=== PATIENT | female | born 1975 | race American Indian/Alaskan Native ===

== ENCOUNTER 2019-01-31 21:09 | Emergency (ER) | payer OTHER ==
--- NOTE | 2019-01-31 21:53 | Event Note ---
ED Screening Note ED Screening Note: right lower back pain that radiates down the right leg began today no fall no numbness or weakness states she took ibuprofen without much relief This initial assessment/diagnostic orders/clinical plan/treatment(s) is/are subject to change based on patients health status, clinical progression and re-assessment by fellow clinical providers in the ED. Further treatment and workup at subsequent clinical providers discretion. Patient/guardian urged not to elope from the ED as their condition may be serious if not clinically assessed and managed.
[2019-02-01] MEDS ORDERED: ACETAMINOPHEN 500 MG TAB PO ONE (00:12)
[2019-02-01] MEDS ORDERED: IBUPROFEN 800 MG TAB PO ONE (00:12)
[2019-02-01] MEDS ORDERED: CYCLOBENZAPRINE 10 MG TAB PO ONE (00:12)
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
[2019-02-01 01:06] VITALS: BP 108/52
== END 2019-02-01 01:06 | disposition home or self-care (01) ==
LOC: ED 21:09
DX: S39.012A Strain of muscle, fascia and tendon of lower back, initial encounter (principal); M62.830 Muscle spasm of back; F17.200 Nicotine dependence, unspecified, uncomplicated; V89.2XXA Person injured in unspecified motor-vehicle accident, traffic, initial encounter; Y93.89 Activity, other specified; Y92.410 Unspecified street and highway as the place of occurrence of the external cause; Y99.8 Other external cause status
CPT/HCPCS: 99282

== ENCOUNTER 2019-02-02 17:39 | Emergency (ER) | payer OTHER ==
[2019-02-02 17:54] VITALS: BP 111/71
[2019-02-02] MEDS ORDERED: ACETAMINOPHEN 500 MG TAB PO ONE (22:07)
[2019-02-02] MEDS ORDERED: predniSONE 20 MG TAB PO ONE (22:07)
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
== END 2019-02-03 00:50 | disposition home or self-care (01) ==
LOC: ED 17:39
DX: S43.401A Unspecified sprain of right shoulder joint, initial encounter (principal); M62.830 Muscle spasm of back; M62.838 Other muscle spasm; F17.200 Nicotine dependence, unspecified, uncomplicated; Z79.899 Other long term (current) drug therapy; Z90.49 Acquired absence of other specified parts of digestive tract; V49.59XA Passenger injured in collision with other motor vehicles in traffic accident, initial encounter; Y93.89 Activity, other specified; Y92.410 Unspecified street and highway as the place of occurrence of the external cause; Y99.8 Other external cause status
CPT/HCPCS: 36415; 72040; 72100; 73030; 84703; 99283; J7512